=== PATIENT | female | born 1960 | race Caucasian/White ===

== ENCOUNTER 2019-01-02 14:40 | Emergency (ER) | payer OTHER ==
[~2019-01-02] VITALS: Ht 165.1 cm; Wt 60.8 kg
[2019-01-02 14:57] VITALS: BP 106/72
[2019-01-02] MEDS ORDERED: LOSARTAN PO (15:10)
[2019-01-02] MEDS ORDERED: POTA20TA83 PO (15:10)
[2019-01-02] MEDS ORDERED: CHLO25TA2 PO (15:10)
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
[2019-01-02] MEDS ORDERED: ACETAMINOPHEN 325 MG TABLET PO ONE (16:00)
[2019-01-02] MEDS ORDERED: ACETAMINOPHEN 325 MG TABLET ONE (16:07)
[2019-01-02 16:09] LABS: APPEARANCE,URINE Slightly Cloudy (CLEAR); BILIRUBIN,URINE SMALL (NEGATIVE); BLOOD, URINE Negative Ery/uL (NEGATIVE); COLOR,URINE Yellow (YELLOW); KETONES,URINE 15 (NEGATIVE); LEUKOCYTE ESTERASE ,URINE Small (NEGATIVE); NITRITE, URINE Negative (NEGATIVE); PH,URINE 5.5 (5.0-8.0); PROTEIN,URINE Trace mg/dl (NEGATIVE); UGLUCOSE Negative (NEGATIVE); UROBILINOGEN,URINE 0.2 EU/dL (0.2)
[2019-01-02 16:33] LABS: BACTERIA,URINE Few /HPF (None Seen); RBC,URINE 0-2 /HPF (0-2); SQUAMOUS EPITHELIAL CELL,UR Few /HPF (None Seen)
== END 2019-01-02 17:00 | disposition home or self-care (01) ==
LOC: ER 14:48
DX: N39.0 Urinary tract infection, site not specified (principal); I10 Essential (primary) hypertension
CPT/HCPCS: 81000-TC; 87086-TC

== ENCOUNTER 2021-06-06 18:05 | Emergency (ER) | payer OTHER ==
[~2021-06-06] VITALS: Ht 160 cm; Wt 59.0 kg
[~2021-06-06 18:05] MED LIST: CHLO25TA2 PO; LOSARTAN PO; POTA20TA83 PO
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
--- NOTE | 2021-06-06 18:43 | NUR ---
PT SEEN AND EXAMINED BY .
[2021-06-06] MEDS ORDERED: CLONIDINE HCL 0.3 MG/24H PTWK 1 EA PATCH TD SCH (19:00)
--- NOTE | 2021-06-06 19:00 | NUR ---
QUICK SERVICE TECHNICIAN TA BEDSIDE FOR XRAY.
[2021-06-06 19:06] LABS: BASOPHILS # (AUTO) 0.3 K/uL (0.0-0.2); BASOPHILS % (AUTO) 3.3 % (0.0-2.0); EOSINOPHILS % (AUTO) 1.2 % (0.0-6.0); HEMATOCRIT 45 % (33-45); HEMOGLOBIN 15.2 g/dL (11.5-14.8); LYMPHOCYTES # (AUTO) 1.9 K/uL (0.8-4.8); LYMPHOCYTES % (AUTO) 19.8 % (20.0-44.0); MEAN CORPUSCULAR HGB CONC 34 g/dl (31.0-36.0); MEAN CORPUSCULAR VOLUME 102 fL (82-100); MONOCYTES # (AUTO) 0.7 K/uL (0.1-1.30); MONOCYTES % (AUTO) 7.8 % (2.0-12.0); NEUTROPHILS # (AUTO) 6.4 K/uL (1.8-8.9); NEUTROPHILS % (AUTO) 67.9 % (43.0-81.0); PLATELET COUNT (AUTO) 269 K/uL (150-450); RED BLOOD CELL COUNT(AUTO) 4.39 MIL/uL (4.0-5.2); WHITE BLOOD COUNT (AUTO) 9.4 K/uL (4.3-11.0)
[2021-06-06 19:18] LABS: ALBUMIN 3.4 g/dL (3.4-5.0); BILIRUBIN,DIRECT 0.1 mg/dL (0.0-0.2); BILIRUBIN,TOTAL 0.3 mg/dL (0.2-1.0); CALCIUM, SERUM 9.7 mg/dL (8.5-10.1); CREATININE 0.9 mg/dL (0.6-1.3); TOTAL PROTEIN, SERUM 7.9 g/dL (6.4-8.2)
[2021-06-06] MEDS ORDERED: CLONIDINE HCL 0.1 MG TABLET ONE (19:24)
[2021-06-06] MEDS ORDERED: CLONIDINE HCL 0.1 MG TABLET PO ONE (19:30)
[2021-06-06] MEDS ORDERED: CLON0.1T PO (19:48)
[2021-06-06 19:55] VITALS: BP 156/74
--- NOTE | 2021-06-06 19:55 | NUR ---
IV removed. Catheter intact and site benign. Pressure and 4x4 applied to site. No bleeding noted.
--- NOTE | 2021-06-06 19:55 | NUR ---
Patient discharged to [employer] custody in stable condition. Written and verbal after care instructions given. Patient verbalizes understanding of instruction.
== END 2021-06-06 19:56 ==
LOC: ER 18:08
DX: S01.21XA Laceration without foreign body of nose, initial encounter (principal); I10 Essential (primary) hypertension; Z79.899 Other long term (current) drug therapy; X58.XXXA Exposure to other specified factors, initial encounter; Y93.89 Activity, other specified; Y92.89 Other specified places as the place of occurrence of the external cause; Y99.8 Other external cause status
CPT/HCPCS: 36415; 70450-TC; 70486-TC; 71045-TC; 80048-TC; 80076-TC; 85025-TC

== ENCOUNTER 2022-03-23 09:51 | Emergency (ER) | payer OTHER ==
[~2022-03-23] VITALS: Ht 157.5 cm; Wt 59.0 kg
[~2022-03-23 09:51] MED LIST changes: +CLON0.1T PO
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
[2022-03-23] MEDS ORDERED: MORPHINE SULFATE INJ 4 MG/ML DISP.SYRIN ONE (12:02)
[2022-03-23] MEDS: MORPHINE SULFATE INJ 2 MG/ML DISP.SYRIN IM ONE (12:07)
--- NOTE | 2022-03-23 12:46 | NUR ---
BLS TRANSPORT ETA 1 HOUR 30 MINS VIA [facility].
--- NOTE | 2022-03-23 13:34 | NUR ---
REPORT GIVEN TO AMBULANCE STAFF
[2022-03-23] MEDS ORDERED: MAG HYDROX/AL HYDROX/SIMETH 30 ML UDC ONE (14:02)
[2022-03-23] MEDS: MAG HYDROX/AL HYDROX/SIMETH 30 ML UDC PO ONE (14:05)
--- NOTE | 2022-03-23 14:08 | NUR ---
PATIENT PICKED UP BY [facility] [address] IN STABLE CONDITION. WILL BE BROUGHT HOME. Written and verbal after care instructions given. Patient verbalizes understanding of instruction.
[2022-03-23 14:10] VITALS: BP 162/81
== END 2022-03-23 14:11 | disposition home or self-care (01) ==
LOC: ER 09:58
DX: M79.7 Fibromyalgia (principal); I10 Essential (primary) hypertension; Z79.899 Other long term (current) drug therapy
CPT/HCPCS: 96372; 99283; J2270

== ENCOUNTER 2022-10-19 14:58 | Emergency (ER) | payer OTHER ==
[~2022-10-19] VITALS: Ht 157.5 cm; Wt 59.0 kg
[2022-10-19] MEDS ORDERED: CEFEPIME 1 GM in IV D5W 50 ML IV ONE (15:30)
[2022-10-19] MEDS ORDERED: VANCOMYCIN 1 GM in IV D5W 250 ML IV ONE (15:30)
[2022-10-19] MEDS ORDERED: IV NS 0.9% 1,000 ML BAG IV ONE (15:30)
[2022-10-19] MEDS ORDERED: PANT40TA49 PO (15:44)
[2022-10-19] MEDS ORDERED: LISI-768 PO (15:44)
[2022-10-19] MEDS ORDERED: ESCI10TA PO (15:44)
[2022-10-19] MEDS ORDERED: CEFEPIME 1 GM VIAL ONE (15:46)
[2022-10-19] MEDS ORDERED: VANCOMYCIN 1 GM VIAL ONE (15:47)
--- NOTE | 2022-10-19 15:55 | NUR ---
MOVE SHEET SUBMITTED.
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
[2022-10-19 17:25] LABS: BASOPHILS # (AUTO) 0.1 K/uL (0.0-0.2); BASOPHILS % (AUTO) 0.5 % (0.0-2.0); EOSINOPHILS % (AUTO) 0.2 % (0.0-6.0); HEMATOCRIT 48 % (33-45); HEMOGLOBIN 15.4 g/dL (11.5-14.8); LYMPHOCYTES # (AUTO) 1.6 K/uL (0.8-4.8); LYMPHOCYTES % (AUTO) 10.9 % (20.0-44.0); MEAN CORPUSCULAR HGB CONC 32 g/dl (31.0-36.0); MEAN CORPUSCULAR VOLUME 86 fL (82-100); MONOCYTES # (AUTO) 1.3 K/uL (0.1-1.30); MONOCYTES % (AUTO) 8.6 % (2.0-12.0); NEUTROPHILS # (AUTO) 11.7 K/uL (1.8-8.9); NEUTROPHILS % (AUTO) 79.8 % (43.0-81.0); PLATELET COUNT (AUTO) 337 K/uL (150-450); RED BLOOD CELL COUNT(AUTO) 5.62 MIL/uL (4.0-5.2); WHITE BLOOD COUNT (AUTO) 14.6 K/uL (4.3-11.0)
[2022-10-19] MEDS ORDERED: Z GUARD REMEDY 4 OZ OINT TP PRN (17:30)
[2022-10-19] MEDS ORDERED: IV 1/2NS 1000 ML 1,000 ML IV PRN (17:30)
[2022-10-19] MEDS ORDERED: ONDANSETRON HCL/PF 4 MG/2 ML VIAL IVP PRN (17:30)
[2022-10-19] MEDS ORDERED: ACETAMINOPHEN 325 MG TABLET PO PRN (17:30)
[2022-10-19] MEDS ORDERED: HYDROCODONE/APAP 5/325MG TABLET PO PRN (17:30)
[2022-10-19 17:41] LABS: ALANINE AMINOTRANSFERASE 28 U/L (12-78); ALBUMIN 3.3 g/dL (3.4-5.0); ALCOHOL, BLOOD < 3 mg/dL (0-0); ALKALINE PHOSPHATASE 130 U/L (46-116); ASPARTATE AMINOTRANSFERASE 51 U/L (15-37); BILIRUBIN,DIRECT 0.4 mg/dL (0.0-0.2); BILIRUBIN,TOTAL 1.3 mg/dL (0.2-1.0); CALCIUM, SERUM 11.9 mg/dL (8.5-10.1); CARBON DIOXIDE 26 mmol/L (21-32); CHLORIDE 100 mmol/L (98-107); CREATININE 1.4 mg/dL (0.6-1.3); GLUCOSE 147 mg/dL (74-106); POTASSIUM 3.1 mmol/L (3.5-5.1); SODIUM SERUM 142 mmol/L (136-145); TOTAL PROTEIN, SERUM 8.7 g/dL (6.4-8.2); UREA NITROGEN, BLOOD 29 mg/dL (7-18)
[2022-10-19 17:47] LABS: THYROID STIMULATING HORMONE 1.714 uIU/mL (0.358-3.74)
[2022-10-19 17:52] LABS: SERUM AMMONIA < 10 umol/L (11-32)
[2022-10-19] MEDS ORDERED: PIPERACILLIN /TAZOBACTAM 4.5 G in IV D5W 50 ML IV SCH (18:00)
--- NOTE | 2022-10-19 18:22 | NUR ---
CLINICALS FAXED TO [facility].
--- NOTE | 2022-10-19 19:23 | NUR ---
COVID TEST TAKEN ON BED #1 COMPLETED AND TURNED INTO LAB
--- NOTE | 2022-10-19 19:26 | NUR ---
IV intact, pt was difficult stick will keep IV intact at this time KVO R AC gauge 20
--- NOTE | 2022-10-19 19:50 | NUR ---
SPOKE WITH JOSH FROM [facility]. PER JOSH [facility] NEEDS TO BE CALLED TO GET AUTHORIZATION. ADMITTING MADE AWARE AND ATTEMPTING TO CONTACT [facility] NOW.
--- NOTE | 2022-10-19 20:02 | NUR ---
URINE COLLECTED AND SENT TO LAB
[2022-10-19] MEDS ORDERED: POTASSIUM CHLORIDE 20 MEQ TAB.PRT.SR PO ONE ×2 (21:00→21:18)
[2022-10-19 21:52] LABS: BILIRUBIN,URINE 2+ (NEGATIVE); COLOR,URINE YELLOW (YELLOW); LEUKOCYTE ESTERASE ,URINE NEGATIVE (NEGATIVE); NITRITE, URINE NEGATIVE (NEGATIVE); PH,URINE 5.5 (5.0-8.0); PROTEIN,URINE 2+ mg/dl (NEGATIVE); UGLUCOSE NEGATIVE (NEGATIVE); UROBILINOGEN,URINE 0.2 EU/dL (0.2)
[2022-10-19 22:01] LABS: BACTERIA,URINE 4+ /HPF (None Seen); RBC,URINE 0-2 /HPF (0-2); WBC,URINE 0-2 /HPF (0-3)
[2022-10-20] MEDS ORDERED: hydrALAZINE HCL IV 20 MG VIAL ONE (04:49)
[2022-10-20] MEDS ORDERED: hydrALAZINE HCL IV 20 MG VIAL IV ONE (05:00)
[2022-10-20 06:04] LABS: BASOPHILS % (AUTO) 0.3 % (0.0-2.0); EOSINOPHILS % (AUTO) 1.5 % (0.0-6.0); HEMATOCRIT 43 % (33-45); LYMPHOCYTES # (AUTO) 2.2 K/uL (0.8-4.8); LYMPHOCYTES % (AUTO) 18.1 % (20.0-44.0); MEAN CORPUSCULAR HGB CONC 33 g/dl (31.0-36.0); MEAN CORPUSCULAR VOLUME 86 fL (82-100); MONOCYTES # (AUTO) 1.2 K/uL (0.1-1.30); MONOCYTES % (AUTO) 10.1 % (2.0-12.0); NEUTROPHILS # (AUTO) 8.4 K/uL (1.8-8.9); PLATELET COUNT (AUTO) 291 K/uL (150-450); RED BLOOD CELL COUNT(AUTO) 4.99 MIL/uL (4.0-5.2); WHITE BLOOD COUNT (AUTO) 11.9 K/uL (4.3-11.0)
[2022-10-20 06:31] LABS: ALBUMIN 2.9 g/dL (3.4-5.0); BILIRUBIN,TOTAL 1.1 mg/dL (0.2-1.0); CALCIUM, SERUM 10.7 mg/dL (8.5-10.1); CREATININE 1.2 mg/dL (0.6-1.3); MAGNESIUM 1.9 mg/dL (1.8-2.4); PHOSPHORUS 3.6 mg/dL (2.5-4.9); POTASSIUM 2.9 mmol/L (3.5-5.1); TOTAL PROTEIN, SERUM 7.5 g/dL (6.4-8.2)
[2022-10-20] MEDS ORDERED: PIPERACILLIN /TAZOBACTAM 3.375 G VIAL IV ONE ×2 (07:18→18:13)
[2022-10-20] MEDS ORDERED: ESCITALOPRAM OXALATE (10 MG) 10 MG TABLET ONE (07:37)
[2022-10-20] MEDS ORDERED: LISINOPRIL (20MG) 20 MG TABLET ONE (07:37)
[2022-10-20] MEDS ORDERED: PANTOPRAZOLE 40 MG VIAL ONE (07:37)
[2022-10-20] MEDS ORDERED: ZOSYN IVPB 4.5 G in IV D5W 50ml IV SCH (08:00)
[2022-10-20] MEDS: ZOSYN IVPB 3.375 G in IV D5W 50ml IV SCH ×3 (08:28→18:14)
--- NOTE | 2022-10-20 08:36 | NUR ---
Zosyn medication ordered from pharm - recieved admin to pt via IV L AC site is intact & patent flushing
[2022-10-20] MEDS ORDERED: LISINOPRIL (5MG) 5 MG TABLET PO SCH (09:00)
[2022-10-20] MEDS ORDERED: ESCITALOPRAM OXALATE (10 MG) 10 MG TABLET PO SCH (09:00)
[2022-10-20] MEDS ORDERED: PANTOPRAZOLE 40 MG TABLET.DR PO SCH (09:00)
--- NOTE | 2022-10-20 09:23 | NUR ---
ANH FROM [facility] [phone] OPTION 2
--- NOTE | 2022-10-20 09:38 | NUR ---
HANNA FROM [facility] CALLED PT HAS AUTH #[id number]
--- NOTE | 2022-10-20 09:40 | NUR ---
CALLED [facility] [phone] IGLESIA INFORMED WE HAVE AUTH. WILL CALL WHEN BED AVAILABLE.
--- NOTE | 2022-10-20 09:53 | NUR ---
FAXED UPDATED FACESHEET TO [facility] [phone]
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
[2022-10-20 11:36] LABS: THYROID STIMULATING HORMONE 1.319 uIU/mL (0.358-3.74)
--- NOTE | 2022-10-20 11:42 | NUR ---
IV STOP TIME 1141 AM, KVO at this time the 12 noon order has been admin , no adverse side effects
--- NOTE | 2022-10-20 13:32 | NUR ---
CALLED [facility] [phone]. STILL WAITING FOR BED AVAILABILITY PER QUAN WOODALL.
[2022-10-20] MEDS ORDERED: VANCOMYCIN 1 GM VIAL ONE (14:50)
[2022-10-20] MEDS ORDERED: VANCOMYCIN 1 GM in IV D5W 250ml IV SCH (15:00)
--- NOTE | 2022-10-20 17:41 | NUR ---
Pt ate 75% of food, no aspirations noted, drank 8 fl oz of OJ and 8 fl oz of H20
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
--- NOTE | 2022-10-20 19:19 | NUR ---
BI-LATERAL EYES CLEANSED WITH NORMAL SALINE, PT ABLE TO OPEN UP BOTH EYES AND ABLE TO SEE OUT OF BOTH , KEPT PT DRY , CLEAN , AND REPOSITIONED FOR COMFORT WARM BLANKET GIVEN
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
--- NOTE | 2022-10-20 20:15 | NUR ---
ACCEPTED AT [facility] 4421-1 REPORT [phone] ETA FOR TRANSPORT PENDING
--- NOTE | 2022-10-20 20:32 | NUR ---
Curtis kahn in [facility] - 10/20/22 at 2034 by [facility] ETA 0230.
--- NOTE | 2022-10-20 20:35 | NUR ---
[facility] ETA [id number]
--- NOTE | 2022-10-20 21:46 | NUR ---
REPORT GIVEN TO JOSE C VALDES OF [facility]. PATIENT WILL BE TRANSFERRED AT 2330.
[2022-10-20] MEDS ORDERED: POTASSIUM CHLORIDE 20 MEQ TAB.PRT.SR PO ONE ×2 (22:30→22:44)
--- NOTE | 2022-10-21 00:50 | NUR ---
REPORT GIVEN TO LINA PEÑALOZA OF [facility].
--- NOTE | 2022-10-21 00:57 | NUR ---
TRANSFERRED PT TO [facility] VIA [facility]. JOSE C VALDES OF [place] MADE AWARE
[2022-10-21 00:58] VITALS: BP 162/70
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
== END 2022-10-21 00:59 ==
LOC: ER 15:23
DX: S22.059A Unspecified fracture of T5-T6 vertebra, initial encounter for closed fracture (principal); S32.049A Unspecified fracture of fourth lumbar vertebra, initial encounter for closed fracture; S32.039A Unspecified fracture of third lumbar vertebra, initial encounter for closed fracture; M62.82 Rhabdomyolysis; N17.0 Acute kidney failure with tubular necrosis; L03.211 Cellulitis of face; W06.XXXA Fall from bed, initial encounter; Y92.032 Bedroom in apartment as the place of occurrence of the external cause; Z20.822 Contact with and (suspected) exposure to COVID-19; G93.41 Metabolic encephalopathy; M79.7 Fibromyalgia; I10 Essential (primary) hypertension; E87.6 Hypokalemia; R29.6 Repeated falls; K80.20 Calculus of gallbladder without cholecystitis without obstruction; M48.04 Spinal stenosis, thoracic region; D75.1 Secondary polycythemia; R00.0 Tachycardia, unspecified; E87.20 Acidosis, unspecified; S00.81XA Abrasion of other part of head, initial encounter; Z79.899 Other long term (current) drug therapy
CPT/HCPCS: 99285; 96365; 96366 ×2; 96368; 93005; 71045; 72125; 70450; 70486; 93307; 74176; 82140; 85025 ×2; 80048; 82550; 87040 ×2; 87086; 83605 ×2; 80076; 81001; 36415 ×2; 84443 ×2; 84484 ×4; 87081; 82553; 87426; 80320; 80307; 83735; 84100; 85652; 80053; J3370 ×3; J7060 ×3; J0692 ×2; C9803; J0360; J2543 ×3; C9113; G0480